=== PATIENT | female | born 1995 | race Caucasian/White ===

== ENCOUNTER 2018-11-11 22:34 | Emergency (ER) | payer OTHER ==
[~2018-11-11] VITALS: Ht 149.9 cm; Wt 65.3 kg
[~2018-11-11 22:34] MED LIST: VISTARIL25 MG PO
[2018-11-12] MEDS ORDERED: URIN D.S. TABL1 EACH PO (04:57)
[2018-11-12] MEDS ORDERED: BACTRIM DS TAB1 EACH PO (04:57)
== END 2018-11-12 05:09 | disposition home or self-care (01) ==
LOC: ER 22:34
DX: N39.0 Urinary tract infection, site not specified (principal)